=== PATIENT | male | born 1955 | race African-American/Black ===

== ENCOUNTER 2018-07-03 00:20 | Emergency (ER) | payer OTHER ==
[~2018-07-03] VITALS: Ht 165.1 cm; Wt 86.0 kg
[2018-07-03 00:37] VITALS: BP 144/100
== END 2018-07-03 01:08 | disposition home or self-care (01) ==
LOC: ER 00:20
DX: R04.0 Epistaxis (principal); E11.9 Type 2 diabetes mellitus without complications; E78.00 Pure hypercholesterolemia, unspecified
CPT/HCPCS: 99283